=== PATIENT | male | born 1970 | race African-American/Black ===

== ENCOUNTER 2016-12-12 04:19 | Inpatient (IN) | payer BC, OTHER ==
[2016-12-12 04:34] VITALS: BMI 28.5
[2016-12-12 05:01] LABS: BASOPHIL 0.9 % (0-2.0); EOSINOPHIL 3.1 % (0-4.5); MCH 31.8 pg (25.7-33.7); MCHC 33.2 g/dl (32.0-35.9); MEAN CELL VOLUME 95.7 fl (80-96); MEAN PLT VOLUME 7.3 fl (7.5-11.1); PLATELET COUNT 318 K/MM3 (134-434); RDW 12.5 % (11.9-15.9)
[2016-12-12 05:13] LABS: INR 1.06 (0.82-1.09); PROTHROMBIN TIME (PATIENT) 11.7 SEC (9.98-11.88)
[2016-12-12 05:21] LABS: ALBUMIN 3.9 g/dl (3.4-5.0); ANION GAP 10 (8-16); BILIRUBIN,TOTAL 0.5 mg/dL (0.2-1.0); CALCIUM 9.2 mg/dL (8.5-10.1); CO2 25 mmol/L (21-32); GLUCOSE,RANDOM 111 mg/dL (74-106); SGOT/AST 21 U/L (15-37); SGPT/ALT 37 U/L (12-78); TOT PROT 7.4 g/dl (6.4-8.2)
[2016-12-12 05:24] LABS: ALK PHOS 91 U/L (45-117); TROPONIN I < 0.02 ng/ml (0.00-0.05)
--- NOTE | 2016-12-12 06:06 | PDOC ---
History of Present Illness - General Chief Complaint: Chest Pain Stated Complaint: CHEST PAIN/TIGHTNESS, SOB Time Seen by Provider: 12/12/16 04:41 History Source: Patient Exam Limitations: No Limitations - History of Present Illness Initial Comments: 12/12/16 06:00 46yo Male patient w/ PmHx: HTN presents to ED c/o chest pains, chest tightness with trouble breathing. Patient states drinking alcohol moderately daily. Associated lightheadedness, dizziness reported. He denies any other complaints at this time. Presenting Symptoms: Chest Pain Timing/Duration: reports: getting worse Severity/Quality: reports: moderate, sharp Location: reports: substernal Chest Pain Radiation: reports: no radiation Activities at Onset: reports: no specific activity Past History - Travel Traveled outside of the country in the last 30 days: No Close contact w/someone who was outside of country & ill: No - Past Medical History Allergies/Adverse Reactions: Allergies Allergy/AdvReac Type Severity Reaction Status Date / Time No Known Allergies Allergy Verified 12/12/16 04:33 Home Medications: Ambulatory Orders Lisinopril [Prinivil] 10 mg PO DAILY 12/12/16 HTN: Yes - Psycho/Social/Smoking Cessation Hx Suicidal Ideation: No Smoking History: Never smoked Cardiac Specific PMH - Complaint Specific PMHX Abdominal Aortic Aneurysm: No Angina: No Cardiac Arrhythmia: No Cardiac Stent: No GERD: No Myocardial Infarction: No Pacemaker: No Pulmonary Embolus: No Valvular Heart Disease: No Peripheral Vascular Disease: No Review of Systems - Review of Systems Able to Perform ROS?: Yes Is the patient limited Guyanese proficient: No Constitutional: No: Chills, Fever Respiratory: No: Cough, Orthopnea, Shortness of Breath, Wheezing Cardiac (ROS): Yes: Chest Pain. No: Palpitations, Syncope ABD/GI: No: Constipated, Diarrhea, Nausea, Vomiting : No: Burning, Dysuria, Flank Pain, Hematuria Musculoskeletal: No: Back Pain Integumentary: No: Pruritus, Rash, Sweating All Other Systems: Reviewed and Negative *Physical Exam - Vital Signs Last Vital Signs Temp Pulse Resp BP Pulse Ox 97.7 F 80 19 131/86 99 12/12/16 06:30 12/12/16 06:30 12/12/16 06:30 12/12/16 06:30 12/12/16 06:30 - Physical Exam General Appearance: Yes: Nourished, Appropriately Dressed. No: Apparent Distress, Mild Distress, Moderate Distress, Severe Distress Neck: positive: Trachea midline, Supple. negative: Decreased range of motion, Stridor, Lymphadenopathy (R), Lymphadenopathy (L) Respiratory/Chest: positive: Lungs Clear, Normal Breath Sounds. negative: Chest Tender, Respiratory Distress, Accessory Muscle Use, Labored Respiration, Rapid RR Cardiovascular: positive: Tachycardia, Irregular Gastrointestinal/Abdominal: positive: Normal Bowel Sounds, Soft. negative: Distended, Guarding, Rebound, Tenderness Musculoskeletal: positive: Normal Inspection. 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, Fully Oriented, Alert, Normal Mood/ Affect, Normal Response, Motor Strength 5/5 Heart Score/ECG Review - History History: Slightly suspicious - Electrocardiogram EKG: Normal - Age Age: 45-65 - Risk Factors Risk Factors Heart Score: Yes Hx Hypertension Based on the list above the patient has:: 1-2 risk factors - Troponin Troponin: </= normal limit - Score Heart Score - Total: 2 - ECG Impressions Normal ECG: No Non-specific ST Elevation: No Ischemic Changes: No Bradycardia: No Tachycardia: Afib w/rapid Vent rate Torsades sofia Pointes: No WPW: No ED Treatment Course - LABORATORY CBC & Chemistry Diagram: 12/12/16 04:55 12/12/16 04:55 - ADDITIONAL ORDERS Additional order review: Laboratory Results 12/12/16 12/12/16 12/12/16 04:55 04:55 04:55 INR 1.06 Sodium 135 L Potassium 4.1 Chloride 100 Carbon Dioxide 25 Anion Gap 10 BUN 13 Creatinine 1.0 Creat Clearance w eGFR > 60 Random Glucose 111 H Calcium 9.2 Magnesium 2.0 Total Bilirubin 0.5 AST 21 ALT 37 Alkaline Phosphatase 91 Creatine Kinase 172 Creatine Kinase Index CK-MB (CK-2) < 1.000 CK-MB (CK-2) Rel Index Cancelled Troponin I < 0.02 Total Protein 7.4 Albumin 3.9 12/12/16 04:55 RBC 4.50 MCV 95.7 MCHC 33.2 RDW 12.5 MPV 7.3 L Neutrophils % 53.0 Lymphocytes % 31.4 Monocytes % 11.6 H Eosinophils % 3.1 Basophils % 0.9 *DC/Admit/Observation/Transfer Diagnosis at time of Disposition: New onset atrial fibrillation - Discharge Dispostion Condition at time of disposition: Fair Admit: Yes
[2016-12-12] MEDS ORDERED: DILTIAZEM INJECTION 125 MG in DEXTROSE 5%-WATER - 100 ML IVPB SCH (06:45)
--- NOTE | 2016-12-12 09:39 | CON.CARD ---
Consult Consult Specialty:: Cardiology Reason for Consultation:: new onset AF - History of Present Illness History of Present Illness: 46yo Male patient w/ PmHx: HTN presents to ED c/o chest pains, chest tightness with trouble breathing. Patient states drinking alcohol moderately daily. Associated lightheadedness, dizziness reported. He denies any other complaints at this time. - History Source History Provided By: Patient, Medical Record - Past Medical History Cardio/Vascular: Yes: HTN - Smoking History Smoking history: Never smoked Home Medications - Allergies Allergies/Adverse Reactions: Allergies Allergy/AdvReac Type Severity Reaction Status Date / Time No Known Allergies Allergy Verified 12/12/16 04:33 - Home Medications Home Medications: Ambulatory Orders Lisinopril [Prinivil] 10 mg PO DAILY 12/12/16 Review of Systems - Review of Systems Constitutional: reports: No Symptoms Eyes: reports: No Symptoms HENT: reports: No Symptoms Neck: reports: No Symptoms Cardiovascular: reports: No Symptoms, Chest Pain, Shortness of Breath Respiratory: reports: SOB Gastrointestinal: reports: No Symptoms Genitourinary: reports: No Symptoms Breasts: reports: No Symptoms Reported Musculoskeletal: reports: No Symptoms Integumentary: reports: No Symptoms Neurological: reports: No Symptoms Endocrine: reports: No Symptoms Hematology/Lymphatic: reports: No Symptoms Psychiatric: reports: No Symptoms Vital Signs: Vital Signs Temperature 97.7 F 12/12/16 06:30 Pulse Rate 96 H 12/12/16 07:42 Respiratory Rate 20 12/12/16 07:42 Blood Pressure 131/86 12/12/16 07:42 O2 Sat by Pulse Oximetry (%) 100 12/12/16 07:42 Constitutional: Yes: Well Nourished, No Distress, Calm Eyes: Yes: WNL, Conjunctiva Clear, EOM Intact HENT: Yes: WNL, Atraumatic, Normocephalic Neck: Yes: WNL, Supple, Trachea Midline Respiratory: Yes: WNL, Regular, CTA Bilaterally Gastrointestinal: Yes: WNL, Normal Bowel Sounds Renal/: Yes: WNL Cardiovascular: Yes: Tachycardia, Pulse Irregular Heart Sounds: Yes: S1, S2 Musculoskeletal: Yes: WNL Extremities: Yes: WNL Integumentary: Yes: WNL Neurological: Yes: WNL, Alert, Oriented ...Motor Strength: WNL Psychiatric: Yes: WNL, Alert, Oriented - Other Data Labs, Other Data: INR, PTT INR 1.06 (0.82-1.09) 12/12/16 04:55 Laboratory Tests 12/12/16 12/12/16 12/12/16 04:55 04:55 04:55 WBC 12.0 H RBC 4.50 Hgb 14.3 Hct 43.1 MCV 95.7 MCHC 33.2 RDW 12.5 Plt Count 318 MPV 7.3 L Neutrophils % 53.0 Lymphocytes % 31.4 Monocytes % 11.6 H Eosinophils % 3.1 Basophils % 0.9 INR 1.06 Sodium 135 L Potassium 4.1 Chloride 100 Carbon Dioxide 25 Anion Gap 10 BUN 13 Creatinine 1.0 Creat Clearance w eGFR > 60 Random Glucose 111 H Calcium 9.2 Magnesium 2.0 Total Bilirubin 0.5 AST 21 ALT 37 Alkaline Phosphatase 91 Creatine Kinase 172 Creatine Kinase Index CK-MB (CK-2) < 1.000 CK-MB (CK-2) Rel Index Troponin I < 0.02 Total Protein 7.4 Albumin 3.9 12/12/16 04:55 WBC RBC Hgb Hct MCV MCHC RDW Plt Count MPV Neutrophils % Lymphocytes % Monocytes % Eosinophils % Basophils % INR Sodium Potassium Chloride Carbon Dioxide Anion Gap BUN Creatinine Creat Clearance w eGFR Random Glucose Calcium Magnesium Total Bilirubin AST ALT Alkaline Phosphatase Creatine Kinase Creatine Kinase Index CK-MB (CK-2) CK-MB (CK-2) Rel Index Cancelled Troponin I Total Protein Albumin Imaging - Results Chest X-ray: Image Reviewed (no i/e) EKG: Image Reviewed (af lvh) Assessment/Plan new onset AF atypical cp htn hhd etoh abuse Plan echo ac with NOAC start lopressor 100 bid taper off cardizem IV chesk lipids urine tox
--- NOTE | 2016-12-12 10:04 | HP ---
CHIEF COMPLAINT:Chest pain and shortness of breath PCP:Page HISTORY OF PRESENT ILLNESS: 46M history of HTN presents to the ED with chest pain and shortness of breath. Patient states he had left arm pain which started about 1 week ago. Patient just came back from [facility] last night after being there or 3 days. He endorses partying and drinking alcohol while there. He states while in [place] he started having sharp apin acorss his chest. 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 He came to the ED and was noted to be in new onset A fib with RVR. He endorses a history of palpitations "once in a while." He also had one episode of vomiting with his chest pain. Currently asymptomatic ER course was notable for: (1)CXR EKG (2)Labs (3)Lovenox Recent Travel:[facility] returned yesterday after being there for 3 days PAST MEDICAL HISTORY:HTN PAST SURGICAL HISTORY:Denies Social History: Smoking:Denies Alcohol:6 beers at least a day Drugs: Denies Family History: "Heart problems" on mother's side. Father has HTN an DM Allergies No Known Allergies Allergy (Verified 12/12/16 04:33) HOME MEDICATIONS: Home Medications Medication Instructions Recorded Lisinopril [Prinivil] 10 mg PO DAILY 12/12/16 REVIEW OF SYSTEMS CONSTITUTIONAL: Absent: fever, chills, diaphoresis, generalized weakness, malaise, loss of appetite, weight change HEENT: Absent: rhinorrhea, nasal congestion, throat pain, throat swelling, difficulty swallowing, mouth swelling, ear pain, eye pain, visual changes CARDIOVASCULAR: Absent: syncope, lightheadedness, peripheral edema Present: palpitations, irregular heart rate,chest pain RESPIRATORY: Absent: cough, dyspnea with exertion, orthopnea, wheezing, stridor, hemoptysis Present: Shortness of breath GASTROINTESTINAL: Absent: abdominal pain, abdominal distension, diarrhea, constipation, melena, hematochezia Present: nausea, vomiting GENITOURINARY: Absent: dysuria, frequency, urgency, hesitancy, hematuria, flank pain, genital pain MUSCULOSKELETAL: Absent: myalgia, arthralgia, joint swelling, back pain, neck pain SKIN: Absent: rash, itching, pallor HEMATOLOGIC/IMMUNOLOGIC: Absent: easy bleeding, easy bruising, lymphadenopathy, frequent infections ENDOCRINE: Absent: unexplained weight gain, unexplained weight loss, heat intolerance, cold intolerance NEUROLOGIC: Absent: headache, focal weakness or paresthesias, dizziness, unsteady gait, seizure, mental status changes, bladder or bowel incontinence PSYCHIATRIC: Absent: anxiety, depression, suicidal or homicidal ideation, hallucinations. PHYSICAL EXAMINATION Vital Signs - 24 hr 12/12/16 07:42 Pulse Rate [ 96 H Left] Respiratory 20 Rate Blood Pressure 131/86 [Left Arm] O2 Sat by Pulse 100 Oximetry (%) GENERAL: Awake, alert, and fully oriented, in no acute distress. HEAD: Normal with no signs of trauma. EYES: Pupils equal, round and reactive to light, extraocular movements intact, sclera anicteric, conjunctiva clear EARS, NOSE, THROAT: Moist mucous membranes. NECK: supple without JVD LUNGS: Breath sounds equal, clear to auscultation bilaterally. No wheezes, and no crackles. No accessory muscle use. HEART: Irregularrly irregular Tachycardic without murmur ABDOMEN: Soft, nontender, not distended, normoactive bowel sounds, no guarding, no rebound UPPER EXTREMITIES: warm, well-perfused. No peripheral edema. LOWER EXTREMITIES: warm, well-perfused. No calf tenderness. No peripheral edema. NEUROLOGICAL: Cranial nerves II-XII grossly intact. Normal speech. Muscle strength 5/5 2+ Biceps and knee jerk PSYCHIATRIC: Cooperative. Good eye contact. Appropriate mood and affect. Laboratory Results - last 24 hr 12/12/16 12/12/16 12/12/16 04:55 04:55 04:55 WBC 12.0 H RBC 4.50 Hgb 14.3 Hct 43.1 MCV 95.7 MCHC 33.2 RDW 12.5 Plt Count 318 MPV 7.3 L Neutrophils % 53.0 Lymphocytes % 31.4 Monocytes % 11.6 H Eosinophils % 3.1 Basophils % 0.9 INR 1.06 Sodium 135 L Potassium 4.1 Chloride 100 Carbon Dioxide 25 Anion Gap 10 BUN 13 Creatinine 1.0 Creat Clearance w eGFR > 60 Random Glucose 111 H Calcium 9.2 Magnesium 2.0 Total Bilirubin 0.5 AST 21 ALT 37 Alkaline Phosphatase 91 Creatine Kinase 172 Creatine Kinase Index CK-MB (CK-2) < 1.000 CK-MB (CK-2) Rel Index Troponin I < 0.02 Total Protein 7.4 Albumin 3.9 12/12/16 04:55 WBC RBC Hgb Hct MCV MCHC RDW Plt Count MPV Neutrophils % Lymphocytes % Monocytes % Eosinophils % Basophils % INR Sodium Potassium Chloride Carbon Dioxide Anion Gap BUN Creatinine Creat Clearance w eGFR Random Glucose Calcium Magnesium Total Bilirubin AST ALT Alkaline Phosphatase Creatine Kinase Creatine Kinase Index CK-MB (CK-2) CK-MB (CK-2) Rel Index Cancelled Troponin I Total Protein Albumin EKG: A fib with RVR CXR: clear ASSESSMENT/PLAN: 46M with HTN presents with Chest pain and SOB found to be in new onset a fib after heavy drinking on vacation. New onset Afib with RVR: likely from heavy drinking admit to telemtery for monitoring cardiology consult titrate off cardizem gtt and start metoprolol 100mg po bid CHADVaSc score 1 will start eliquis--->HAS-BLED score 1 Echo Even if goes into sinus and ECHO is WNL will need AC for at least 3 months Chest pain r/o ID lipid panel trend troponins Cardiology consult ECHO Statin HTN: restart lisinopril at home dose 10mg po daily Alcohol abuse: counselled on stopping Drinks 6 beers a day everyday and sometimes liquor on top of that CIWA protocol if needed not interested in stopping FEN: no IVF No electrolyte issues low sodium diet PPx: eliquis no GI PPx needed at this time no deconditioning issues will put PT consult if needed. Case d/w attending Dr. Brown Visit type - Emergency Visit Emergency Visit: Yes ED Registration Date: 12/12/16 Care time: The patient presented to the Emergency Department on the above date and was hospitalized for further evaluation of their emergent condition. - New Patient This patient is new to me today: Yes Date on this admission: 12/12/16 - Critical Care Critical Care patient: No
[2016-12-12] MEDS ORDERED: ATORVASTATIN CA 40 MG TABLET (FP) PO ONE (10:30)
[2016-12-12] MEDS ORDERED: LISINOPRIL 10 MG TABLET (FP) PO SCH (10:30)
[2016-12-12] MEDS: APIXABAN 5 MG TABLET PO SCH ×2 (10:32→21:22)
[2016-12-12] MEDS: METOPROLOL TARTRATE 50 MG TABLET (FP) PO SCH ×2 (10:32→21:22)
[2016-12-12 11:25] LABS: CHOLESTEROL 195 mg/dL (50-200); LDL CHOLESTEROL (ONLY SJRH) 122 mg/dL (5-100)
[2016-12-12 13:20] LABS: URINE APPEARANCE CLEAR; URINE BILIRUBIN NEGATIVE (NEGATIVE); URINE BLOOD NEGATIVE (NEGATIVE); URINE COLOR LTYELLOW; URINE GLUCOSE (UA) NEGATIVE (NEGATIVE); URINE KETONE NEGATIVE (NEGATIVE); URINE LEUK ESTERASE NEGATIVE (NEGATIVE); URINE NITRITE NEGATIVE (NEGATIVE); URINE PROTEIN NEGATIVE (NEGATIVE); URINE UROBILINOGEN NEGATIVE E.U./dl (0.2-1.0)
[2016-12-12 19:29] LABS: URINE MARIJUANA THC NEGATIVE ng/ml (CUTOFF=50)
[2016-12-13 07:21] LABS: MCH 32.5 pg (25.7-33.7); MCHC 33.9 g/dl (32.0-35.9); MEAN PLT VOLUME 7.6 fl (7.5-11.1); PLATELET COUNT 303 K/MM3 (134-434); RDW 12.6 % (11.9-15.9); WHITE BLOOD COUNT 9.7 K/mm3 (4.0-10.0)
[2016-12-13 08:02] LABS: ANION GAP 9 (8-16); CALCIUM 8.9 mg/dL (8.5-10.1); CO2 27 mmol/L (21-32); GLUCOSE,RANDOM 104 mg/dL (74-106); MAGNESIUM 2.1 mg/dL (1.8-2.4); PHOSPHOROUS 3.9 mg/dL (2.5-4.9)
[2016-12-13] MEDS: APIXABAN 5 MG TABLET PO SCH ×2 (09:33→22:17)
[2016-12-13] MEDS: METOPROLOL TARTRATE 50 MG TABLET (FP) PO SCH ×2 (09:33→22:17)
--- NOTE | 2016-12-13 11:33 | EKG ---
Test Reason : Blood Pressure : / mmHG Vent. Rate : 117 BPM Atrial Rate : 182 BPM P-R Int : 000 ms QRS Dur : 094 ms QT Int : 288 ms P-R-T Axes : 000 -16 020 degrees QTc Int : 401 ms ATRIAL FIBRILLATION WITH RAPID VENTRICULAR RESPONSE MINIMAL VOLTAGE CRITERIA FOR LVH, MAY BE NORMAL VARIANT ABNORMAL ECG WHEN COMPARED WITH ECG OF 28-DEC-2000 09:58, ATRIAL FIBRILLATION HAS REPLACED SINUS RHYTHM Confirmed by JULIETTE BERMUDEZ, REYNALDO ([id number]) on 12/13/2016 11:33:15 AM Referred By: Confirmed By:REYNALDO SEGOVIA MD
--- NOTE | 2016-12-13 11:39 | PN ---
Progress Note, Physician Chief Complaint: Pt A&Ox3; asymptomatic. History of Present Illness: 46yo Male patient w/ PmHx: HTN presents to ED c/o chest pains, chest tightness with trouble breathing. Patient states drinking alcohol moderately daily. Associated lightheadedness, dizziness reported. He denies any other complaints at this time. Presenting Symptoms: Chest Pain Timing/Duration: reports: getting worse Severity/Quality: reports: moderate, sharp Location: reports: substernal Chest Pain Radiation: reports: no radiation Activities at Onset: reports: no specific activity - Current Medication List Current Medications: Active Medications Apixaban (Eliquis -) 5 mg PO BID [facility] Last Admin: 12/13/16 09:33 Dose: 5 mg Atorvastatin Calcium (Lipitor -) 40 mg PO [facility] Metoprolol Tartrate (Lopressor -) 100 mg PO BID [facility] Last Admin: 12/13/16 09:33 Dose: 100 mg - Objective Vital Signs: Vital Signs Temperature 97.7 F 12/13/16 09:00 Pulse Rate 78 12/13/16 09:00 Respiratory Rate 20 12/13/16 09:00 Blood Pressure 114/69 12/13/16 09:00 O2 Sat by Pulse Oximetry (%) 98 12/13/16 09:00 Constitutional: Yes: Calm Eyes: Yes: WNL HENT: Yes: WNL Neck: Yes: WNL Cardiovascular: Yes: Regular Rate and Rhythm Respiratory: Yes: Regular Gastrointestinal: Yes: Soft ...Rectal Exam: Yes: Deferred Genitourinary: No: Anuria Breast(s): Yes: WNL Musculoskeletal: Yes: WNL Extremities: Yes: WNL Edema: No Peripheral Pulses WNL: Yes Integumentary: Yes: WNL Neurological: Yes: WNL ...Motor Strength: WNL Psychiatric: Yes: Other (alcoholism) Labs: CBC, BMP 12/13/16 05:35 12/13/16 05:35 INR, PTT INR 1.06 (0.82-1.09) 12/12/16 04:55 Current Medications Apixaban (Eliquis -) 5 mg PO BID [facility] Last Admin: 12/13/16 09:33 Dose: 5 mg Atorvastatin Calcium (Lipitor -) 40 mg PO [facility] Abnormal Lab Results 12/13/16 05:35 BUN 19 H D - ....Imaging Ultrasound: Report Reviewed (ECHO: normal LVEF; mild MO; normal LA size) Problem List - Problems (1) New onset atrial fibrillation Assessment/Plan: Pt has now changed from AF to normal sinus rhythm. ECHO: normal LVEF; normal LA size. As noted by attending team, pt is an active alcoholic (at least 6 beers a night) . [id number] score is 1. Apixaban may need to be discontinued, especially if he continues to drink; consider ASA, but even this has risk for bleed (higher, given alcoholism). Continue metoprolol; can change to ER for better compliance (hold metoprolol until after stress MIBI). Follow TFTs. Code(s): I48.91 - UNSPECIFIED ATRIAL FIBRILLATION (2) Hyperlipidemia Assessment/Plan: agree with statin Code(s): E78.5 - HYPERLIPIDEMIA, UNSPECIFIED (3) HTN (hypertension) Assessment/Plan: presently well-controlled. Code(s): I10 - ESSENTIAL (PRIMARY) HYPERTENSION (4) Family history of heart disease Assessment/Plan: mother with heart disease. Code(s): Z82.49 - FAMILY HX OF ISCHEM HEART DIS AND OTH DIS OF THE CIRC SYS (5) Alcoholism Assessment/Plan: long-term detox protocol. 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 Multiple CAD risks. For stress MIBI. Code(s): R07.9 - CHEST PAIN, UNSPECIFIED
[2016-12-13 12:17] LABS: THYROID STIMULATING HORMONE 0.85 uIU/ml (0.358-3.74)
--- NOTE | 2016-12-13 15:49 | EKG ---
Test Reason : Blood Pressure : / mmHG Vent. Rate : 072 BPM Atrial Rate : 072 BPM P-R Int : 170 ms QRS Dur : 092 ms QT Int : 388 ms P-R-T Axes : 050 -08 -11 degrees QTc Int : 424 ms NORMAL SINUS RHYTHM NORMAL ECG WHEN COMPARED WITH ECG OF 12-DEC-2016 04:31, SINUS RHYTHM HAS REPLACED ATRIAL FIBRILLATION VENT. RATE HAS DECREASED BY 45 BPM INVERTED T WAVES HAVE REPLACED NONSPECIFIC T WAVE ABNORMALITY IN INFERIOR LEADS Confirmed by REYNALDO SEGOVIA MD ([id number]) on 12/13/2016 3:49:38 PM Referred By: EMILIA LINO Confirmed By:REYNALDO SEGOVIA MD
--- NOTE | 2016-12-13 17:47 | PN ---
Physical Exam: SUBJECTIVE: Patient seen and examined this AM. Patient feels a lot better. No more CP, not SOB, no fevers, no chills. Feels back to baseline. Patient educated on condition and counseled on alcohol cessation. OBJECTIVE: Vital Signs Period Temp Pulse Resp BP Sys/Arellano Pulse Ox Last 24 Hr 97.5 F-98.7 F 76-84 20-20 101-117/59-78 98-100 GENERAL: The patient is awake, alert, and fully oriented, in no acute distress. EYES: PERRL, extraocular movements intact LUNGS: Breath sounds equal, clear to auscultation bilaterally, no wheezes, no crackles, no accessory muscle use. HEART: Regular rate and rhythm, S1, S2 without murmur, rub or gallop. ABDOMEN: Soft, nontender, nondistendned, normoactive bowel sounds EXTREMITIES: 2+ pulses, warm, well-perfused, no edema. NEUROLOGICAL: Mental statua AAO x3, no facial droop. Cranial nerves II through XII grossly intact. Laboratory Results - last 24 hr 12/12/16 12/12/16 12/13/16 18:00 20:50 05:35 WBC 9.7 RBC 4.52 Hgb 14.7 Hct 43.4 MCV 96.0 MCHC 33.9 RDW 12.6 Plt Count 303 MPV 7.6 Sodium Potassium Chloride Carbon Dioxide Anion Gap BUN Creatinine Random Glucose Calcium Phosphorus Magnesium Troponin I < 0.02 TSH Opiates Screen Negative Methadone Screen Negative Barbiturate Screen Negative Phencyclidine Screen Negative Ur Amphetamines Screen Negative MDMA (Ecstasy) Screen Negative Benzodiazepines Screen Negative Cocaine Screen Negative U Marijuana (THC) Screen Negative 12/13/16 12/13/16 05:35 05:35 WBC RBC Hgb Hct MCV MCHC RDW Plt Count MPV Sodium 138 Potassium 4.5 Chloride 102 Carbon Dioxide 27 Anion Gap 9 BUN 19 H D Creatinine 1.0 Random Glucose 104 Calcium 8.9 Phosphorus 3.9 Magnesium 2.1 Troponin I TSH 0.85 Cancelled Opiates Screen Methadone Screen Barbiturate Screen Phencyclidine Screen Ur Amphetamines Screen MDMA (Ecstasy) Screen Benzodiazepines Screen Cocaine Screen U Marijuana (THC) Screen Active Medications Generic Name Dose Route Start Last Admin Trade Name Freq PRN Reason Stop Dose Admin Apixaban 5 mg 12/12/16 10:15 12/13/16 09:33 Eliquis - PO 5 mg BID ELMO Administration Atorvastatin Calcium 40 mg 12/13/16 22:00 Lipitor - PO HS [facility] ASSESSMENT/PLAN: 46M with PMHx HTN presented with chest pain, palpitations, SOB, found to be a new onset Afib with RVR, likely from heavy EToH abuse. # New onset Afib with RVR - Cause is likely due to heavy drinking. Patient drinks 6 beers a day everyday mixed with strong liquor - Patient admitted to telemetry for monitoring, tele reviewed today, patient had intermittent episode of Afib, no tachycardia - Patient is rate controlled with metoprolol 100mg PO BID - CHADSVaSC score is 1 (for HTN), patient initially started on Eliquis 5mg PO BID. Patient counseled on dangerous of drinking while on Eliquis, patient may fall and have a bleed. Patient promissed attending that he would not drink for 3 months. Cardio recommends thinking about d/c'ing it - If we continue AC, needs to be for at least 3 months - Echo is negative for clots # Chest pain r/o NC - Patient presented with chest pain - Lipid panel, troponins, A1C are WNL - Patient on statin 40mg PO QHD - Cardio recommends stress test, d/c'd metoprolol temporarily, will check results tomorrow # History of HTN: - Restart lisinopril at home dose 10mg po daily # History of Alcohol Abuse - Patient was counseled to stop drinking, ifnormed that if patient is on Eliquis there is a high risk of bleed counselled on stopping - Patient not actively withdrawing # FEN: - Fluids: no IVF - Electrolytes: No electrolyte issues - Nutrition: low sodium diet # PPx: - Patient is on Eliquis 5mg PO BID - No GI PPx needed at this time - No deconditioning issues will put PT consult if needed. # Code Status: - Full Code Visit type - Emergency Visit Emergency Visit: No - New Patient This patient is new to me today: No - Critical Care Critical Care patient: No
--- NOTE | 2016-12-13 20:35 | PN ---
Teaching Attending Note Name of Resident: Ethel Sun ATTENDING PHYSICIAN STATEMENT I saw and evaluated the patient. I reviewed the resident's note and discussed the case with the resident. I agree with the resident's findings and plan as documented. SUBJECTIVE: Denies any chest pain at this time. No fever or chills, no withdrawel at this time. OBJECTIVE: Vital Signs Temperature 97.0 F L 12/13/16 17:00 Pulse Rate 85 12/13/16 17:00 Respiratory Rate 20 12/13/16 17:00 Blood Pressure 110/67 12/13/16 17:00 O2 Sat by Pulse Oximetry (%) 98 12/13/16 09:00 CBCD WBC 9.7 K/mm3 (4.0-10.0) 12/13/16 05:35 RBC 4.52 M/mm3 (4.00-5.60) 12/13/16 05:35 Hgb 14.7 GM/dL (11.7-16.9) 12/13/16 05:35 Hct 43.4 % (35.4-49) 12/13/16 05:35 MCV 96.0 fl (80-96) 12/13/16 05:35 MCHC 33.9 g/dl (32.0-35.9) 12/13/16 05:35 RDW 12.6 % (11.9-15.9) 12/13/16 05:35 Plt Count 303 K/MM3 (134-434) 12/13/16 05:35 MPV 7.6 fl (7.5-11.1) 12/13/16 05:35 CMP Sodium 138 mmol/L (136-145) 12/13/16 05:35 Potassium 4.5 mmol/L (3.5-5.1) 12/13/16 05:35 Chloride 102 mmol/L (98-107) 12/13/16 05:35 Carbon Dioxide 27 mmol/L (21-32) 12/13/16 05:35 Anion Gap 9 (8-16) 12/13/16 05:35 BUN 19 mg/dL (7-18) H D 12/13/16 05:35 Creatinine 1.0 mg/dL (0.7-1.3) 12/13/16 05:35 Creat Clearance w eGFR > 60 (>60) 12/12/16 04:55 Random Glucose 104 mg/dL (74-106) 12/13/16 05:35 Calcium 8.9 mg/dL (8.5-10.1) 12/13/16 05:35 Total Bilirubin 0.5 mg/dL (0.2-1.0) 12/12/16 04:55 AST 21 U/L (15-37) 12/12/16 04:55 ALT 37 U/L (12-78) 12/12/16 04:55 Alkaline Phosphatase 91 U/L (45-117) 12/12/16 04:55 Total Protein 7.4 g/dl (6.4-8.2) 12/12/16 04:55 Albumin 3.9 g/dl (3.4-5.0) 12/12/16 04:55 CARDIAC ENZYMES Creatine Kinase 172 IU/L (39-308) 12/12/16 04:55 Troponin I < 0.02 ng/ml (0.00-0.05) 12/12/16 20:50 Current Medications Generic Name Dose Route Start Last Admin Trade Name Freq PRN Reason Stop Dose Admin Apixaban 5 mg 12/12/16 10:15 12/13/16 09:33 Eliquis - PO 5 mg BID ELMO Administration Atorvastatin Calcium 40 mg 12/13/16 22:00 Lipitor - PO HS [facility] Metoprolol Tartrate 100 mg 12/13/16 22:00 Lopressor - PO BID [facility] Home Medications Medication Instructions Recorded Lisinopril [Prinivil] 10 mg PO DAILY 12/12/16 PE: per resident's note Ultrasound: Report Reviewed (ECHO: normal LVEF; mild [place]; normal LA size) ASSESSMENT AND PLAN: Patient is a 46M history of HTN presents to the ED with chest pain and shortness of breath. And was found to have a new onset afib with RVR. # New onset atrial fibrillation , NSR now s/p Cardizem, on lopressor now. with [id number] score is 1. Patient was started on Apixaban may need to be discontinued, especially if he continues to drink; will consider ASA instead but also has risk for bleed with alcoholism. Patient drinks at least 6 beers a night. Continue metoprolol; but will hold it for now for stress MIBI test. # Hyperlipidemia on statin continue # HTN (hypertension) controlled # Family history of heart disease # Alcoholism was suggested to stop drinking if her is going to be on ELiquis. patient stated that he can stop drinking for 3 months only # Acute Chest pain r/o ACS , going for stress test (MIBI) DVT Px: Eliquis
[2016-12-13] MEDS: ATORVASTATIN CA 40 MG TABLET (FP) PO SCH (22:17)
[2016-12-14 07:29] LABS: MCH 32.5 pg (25.7-33.7); MCHC 33.9 g/dl (32.0-35.9); MEAN PLT VOLUME 7.5 fl (7.5-11.1); PLATELET COUNT 282 K/MM3 (134-434); RDW 12.2 % (11.9-15.9); WHITE BLOOD COUNT 9.2 K/mm3 (4.0-10.0)
[2016-12-14 07:56] LABS: ANION GAP 10 (8-16); CALCIUM 8.8 mg/dL (8.5-10.1); CO2 27 mmol/L (21-32); CREATININE 0.9 mg/dL (0.7-1.3); GLUCOSE,RANDOM 109 mg/dL (74-106)
[2016-12-14] MEDS: APIXABAN 5 MG TABLET PO SCH ×2 (08:23→10:54)
--- NOTE | 2016-12-14 08:37 | PN ---
Physical Exam: SUBJECTIVE: Patient seen and examined at bedside. No complaints. OBJECTIVE: Vital Signs Period Temp Pulse Resp BP Sys/Arellano Pulse Ox Last 24 Hr 97.0 F-99 F 70-85 18-20 110-126/67-82 98-98 GENERAL: The patient is awake, alert, and fully oriented, in no acute distress. Patient is very comfortable, was listening to music when I walked in. EYES: PERRL, extraocular movements intact, sclera anicteric, conjunctiva clear. LUNGS: Breath sounds equal, clear to auscultation bilaterally, no wheezes, no crackles, no accessory muscle use. HEART: Regular rate and rhythm, S1, S2 without murmur, rub or gallop. ABDOMEN: Soft, nontender, nondistended, normoactive bowel sounds, no guarding, no rebound EXTREMITIES: 2+ pulses, warm, well-perfused, no edema. On SCds NEUROLOGICAL: AAOx3, no facial droop, Cranial nerves II through XII grossly intact. Normal speech, gait not observed. Laboratory Results - last 24 hr 12/13/16 12/13/16 12/14/16 05:35 05:35 06:07 WBC 9.2 RBC 4.28 Hgb 13.9 Hct 41.1 MCV 96.0 MCHC 33.9 RDW 12.2 Plt Count 282 MPV 7.5 Sodium 138 Potassium 4.5 Chloride 102 Carbon Dioxide 27 Anion Gap 9 BUN 19 H D Creatinine 1.0 Random Glucose 104 Calcium 8.9 Phosphorus 3.9 Magnesium 2.1 TSH 0.85 Cancelled Active Medications Generic Name Dose Route Start Last Admin Trade Name Jonnyq PRN Reason Stop Dose Admin Apixaban 5 mg 12/12/16 10:15 12/14/16 08:23 Eliquis - PO 5 mg BID ELMO Administration Atorvastatin Calcium 40 mg 12/13/16 22:00 12/13/16 22:17 Lipitor - PO 40 mg HS ELMO Administration Metoprolol Tartrate 100 mg 12/13/16 22:00 12/13/16 22:17 Lopressor - PO Not Given BID ELMO ASSESSMENT/PLAN: 46M with PMHx HTN presented with chest pain, palpitations, SOB, found to be a new onset Afib with RVR, likely from heavy EToH abuse. # New onset Afib with RVR - Cause is likely due to heavy drinking. Patient drinks 6 beers a day everyday mixed with strong liquor - Patient admitted to telemetry for monitoring, tele reviewed today, patient had intermittent episode of Afib, no tachycardia - Patient is rate controlled with metoprolol 100mg PO BID - CHADSVaSC score is 1 (for HTN), patient initially started on Eliquis 5mg PO BID, but risks and benefits were weighed, decided to dc. - Echo is negative for clots # Chest pain r/o IL - Patient presented with chest pain - Lipid panel, troponins, A1C are WNL - Patient on statin 40mg PO QHD - Stress test today, results show +perfusion defects in multiple territories - Started ASA and Plavix, dc'ed Eliquis - Will transfer to higher level facility for cardiac cath # History of HTN: - Restart lisinopril at home dose 10mg po daily # History of Alcohol Abuse - Patient was counseled to stop drinking, ifnormed that if patient is on Eliquis there is a high risk of bleed counselled on stopping - Patient later on in the day looked mildly anxious with sinus tach, concerned for withdrawal, given Libruim 25mg once and Q6hrs - For coronary angiogram. If in DTs, will need to treat before undergong the angiogram. # FEN: - Fluids: no IVF - Electrolytes: No electrolyte issues - Nutrition: low sodium diet # PPx: - DVT Px: SCDs ordered - No GI PPx needed at this time - No deconditioning issues will put PT consult if needed. # Code Status: - Full Code Visit type - Emergency Visit Emergency Visit: No - New Patient This patient is new to me today: No - Critical Care Critical Care patient: No - Discharge Referral Referred to [facility] Med P.C.: No
[2016-12-14] MEDS: METOPROLOL TARTRATE 50 MG TABLET (FP) PO SCH ×3 (10:54→21:05)
[2016-12-14] MEDS ORDERED: ASPIRIN 325 MG TABLET PO ONE (15:12)
--- NOTE | 2016-12-14 15:13 | PN ---
Progress Note, Physician Chief Complaint: Pt A&Ox3; no chest pain; pt is anxious, and says he feels somewhat the way he has in the past when going through alcohol withdrawal ("I usually get a drink and then feel better"). History of Present Illness: 46yo black male patient w/ PmHx: HTN presents to ED c/o chest pains, chest tightness with trouble breathing. Patient states drinking alcohol moderately daily. Associated lightheadedness, dizziness reported. He denies any other complaints at this time. Presenting Symptoms: Chest Pain Timing/Duration: reports: getting worse Severity/Quality: reports: moderate, sharp Location: reports: substernal Chest Pain Radiation: reports: no radiation Activities at Onset: reports: no specific activity - Current Medication List Current Medications: Active Medications Apixaban (Eliquis -) 5 mg PO BID [facility] Last Admin: 12/14/16 10:54 Dose: Not Given Atorvastatin Calcium (Lipitor -) 40 mg PO HS [facility] Last Admin: 12/13/16 22:17 Dose: 40 mg Metoprolol Tartrate (Lopressor -) 100 mg PO BID [facility] Last Admin: 12/14/16 14:05 Dose: 100 mg - Objective Vital Signs: Vital Signs Temperature 98.5 F 12/14/16 13:54 Pulse Rate 75 12/14/16 13:54 Respiratory Rate 20 12/14/16 13:54 Blood Pressure 144/91 12/14/16 13:54 O2 Sat by Pulse Oximetry (%) 97 12/14/16 09:00 Constitutional: Yes: Anxious Eyes: Yes: WNL HENT: Yes: WNL Neck: Yes: WNL Cardiovascular: Yes: Tachycardia Respiratory: Yes: Regular Gastrointestinal: Yes: Soft ...Rectal Exam: Yes: Deferred Genitourinary: No: Anuria Breast(s): Yes: WNL Musculoskeletal: Yes: WNL Extremities: Yes: WNL Edema: No Peripheral Pulses WNL: Yes Neurological: Yes: Alert, Oriented Psychiatric: Yes: Alert, Oriented, Other (acute/chronic alcoholism) Labs: CBC, BMP 12/14/16 06:07 12/14/16 06:07 INR, PTT INR 1.06 (0.82-1.09) 12/12/16 04:55 Abnormal Lab Results 12/14/16 06:07 Random Glucose 109 H Problem List - Problems (1) New onset atrial fibrillation Assessment/Plan: Retarted metoprolol; in sinus tachycardia (? withdrawal from alcohol). Apixaban discontinued pending coronary angiogram next week ( [id number] score should include HTN, CHF, and possibly vascular disease, making need for apixaban stronger). TSH 0.85. Code(s): I48.91 - UNSPECIFIED ATRIAL FIBRILLATION (2) Hyperlipidemia Assessment/Plan: agree with statin Code(s): E78.5 - HYPERLIPIDEMIA, UNSPECIFIED (3) HTN (hypertension) Assessment/Plan: presently well-controlled. Code(s): I10 - ESSENTIAL (PRIMARY) HYPERTENSION (4) Family history of heart disease Assessment/Plan: mother with heart disease. Code(s): Z82.49 - FAMILY HX OF ISCHEM HEART DIS AND OTH DIS OF THE CIRC SYS (5) Alcoholism Assessment/Plan: Now in sinus tachycardia; nervous. He has not had a drink since December 11. Recommend starting detox prtocol. Code(s): F10.20 - ALCOHOL DEPENDENCE, UNCOMPLICATED (6) Chest pain Assessment/Plan: Stress treadmill MIBI: + perfusion defects in multiple territories; gated study notes mildly decreased LVEF. Start ASA, IV heparin, and clopidogrel; discontinue apixaban pending coronary angiogram. For coronary angiogram. If in alcoholic withdrawal/DTs, will need to treat before undergoing the angiogram. Code(s): R07.9 - CHEST PAIN, UNSPECIFIED (7) CHF (congestive heart failure) Code(s): I50.9 - HEART FAILURE, UNSPECIFIED
[2016-12-14] MEDS ORDERED: chlordiazePOXIDE HCL 25 MG CAPSULE PO ONE (15:35)
[2016-12-14] MEDS ORDERED: chlordiazePOXIDE HCL 25 MG CAPSULE PO PRN (15:36)
[2016-12-14] MEDS: CLOPIDOGREL BISULFATE 75 MG TABLET (FP) PO SCH (16:21)
[2016-12-14] MEDS: HEPARIN INFUSION - 500 ML IVPB SCH (18:00)
--- NOTE | 2016-12-14 20:49 | PN ---
Teaching Attending Note Name of Resident: Ethel Sun ATTENDING PHYSICIAN STATEMENT I saw and evaluated the patient. I reviewed the resident's note and discussed the case with the resident. I agree with the resident's findings and plan as documented. SUBJECTIVE: Patient is comfortable with no acute distress OBJECTIVE: Vital Signs Temperature 97.4 F L 12/14/16 18:00 Pulse Rate 91 H 12/14/16 18:00 Respiratory Rate 20 12/14/16 18:00 Blood Pressure 125/88 12/14/16 18:00 O2 Sat by Pulse Oximetry (%) 97 12/14/16 09:00 PE: per resident's note positive for sinus tachycardia CBCD WBC 9.2 K/mm3 (4.0-10.0) 12/14/16 06:07 RBC 4.28 M/mm3 (4.00-5.60) 12/14/16 06:07 Hgb 13.9 GM/dL (11.7-16.9) 12/14/16 06:07 Hct 41.1 % (35.4-49) 12/14/16 06:07 MCV 96.0 fl (80-96) 12/14/16 06:07 MCHC 33.9 g/dl (32.0-35.9) 12/14/16 06:07 RDW 12.2 % (11.9-15.9) 12/14/16 06:07 Plt Count 282 K/MM3 (134-434) 12/14/16 06:07 MPV 7.5 fl (7.5-11.1) 12/14/16 06:07 CMP Sodium 139 mmol/L (136-145) 12/14/16 06:07 Potassium 4.4 mmol/L (3.5-5.1) 12/14/16 06:07 Chloride 102 mmol/L (98-107) 12/14/16 06:07 Carbon Dioxide 27 mmol/L (21-32) 12/14/16 06:07 Anion Gap 10 (8-16) 12/14/16 06:07 BUN 15 mg/dL (7-18) D 12/14/16 06:07 Creatinine 0.9 mg/dL (0.7-1.3) 12/14/16 06:07 Creat Clearance w eGFR > 60 (>60) 12/12/16 04:55 Random Glucose 109 mg/dL (74-106) H 12/14/16 06:07 Calcium 8.8 mg/dL (8.5-10.1) 12/14/16 06:07 Total Bilirubin 0.5 mg/dL (0.2-1.0) 12/12/16 04:55 AST 21 U/L (15-37) 12/12/16 04:55 ALT 37 U/L (12-78) 12/12/16 04:55 Alkaline Phosphatase 91 U/L (45-117) 12/12/16 04:55 Total Protein 7.4 g/dl (6.4-8.2) 12/12/16 04:55 Albumin 3.9 g/dl (3.4-5.0) 12/12/16 04:55 CARDIAC ENZYMES Creatine Kinase 172 IU/L (39-308) 12/12/16 04:55 Troponin I < 0.02 ng/ml (0.00-0.05) 12/12/16 20:50 Current Medications Generic Name Dose Route Start Last Admin Trade Name Freq PRN Reason Stop Dose Admin Aspirin 81 mg 12/15/16 10:00 Ecotrin - PO DAILY [facility] Atorvastatin Calcium 40 mg 12/13/16 22:00 12/13/16 22:17 Lipitor - PO 40 mg HS ELMO Administration Chlordiazepoxide HCl 25 mg 12/14/16 15:36 Librium - PO Q6H PRN WITHDRAWAL(CONT SUBST) Clopidogrel Bisulfate 75 mg 12/14/16 15:15 12/14/16 16:21 Plavix - PO 75 mg DAILY ELMO Administration Heparin Sodium/Dextrose 500 mls @ 20 mls/hr 12/14/16 19:15 Heparin Infusion - IVPB TITR [facility] Protocol 1,000 UNITS/HR Metoprolol Tartrate 100 mg 12/13/16 22:00 12/14/16 14:05 Lopressor - PO 100 mg BID ELMO Administration Home Medications Medication Instructions Recorded Lisinopril [Prinivil] 10 mg PO DAILY 12/12/16 Pe: per resident's note Ultrasound: Report Reviewed (ECHO: normal LVEF; mild FL; normal LA size) ASSESSMENT AND PLAN: Patient is a 46M history of HTN presents to the ED with chest pain and shortness of breath. And was found to have a new onset afib with RVR. # Positive for stress test ,getting arranged for angioplasty at [facility]. Discussed with Budget Consultant . ALso patient had Normal sinus tachycardia since Lopressor was on hold. Once given to him he was back to his norm. Also a dose of Librium was ordered. # s/p New onset atrial fibrillation , NSR now s/p Cardizem, on lopressor now. with [id number] score is 1. Patient was started on Apixaban Continue metoprolol; , s/p stress MIBI test which was positive. # Hyperlipidemia on statin continue # HTN (hypertension) controlled # Family history of heart disease # Alcoholism was suggested to stop drinking , since patient was also started on ELiquis. patient stated that he can stop drinking for 3 months only. # Acute Chest pain r/o ACS s/p for stress test (MIBI), positive result. DVT Px: Eliquis
[2016-12-14] MEDS: ATORVASTATIN CA 40 MG TABLET (FP) PO SCH (21:04)
--- NOTE | 2016-12-15 07:51 | PN ---
Progress Note, Physician History of Present Illness: seen and examined today in [facility]. no overnight events. no new complaints. no further chest pain. - Current Medication List Current Medications: Active Medications Aspirin (Ecotrin -) 81 mg PO DAILY [facility] Atorvastatin Calcium (Lipitor -) 40 mg PO HS [facility] Last Admin: 12/14/16 21:04 Dose: 40 mg Chlordiazepoxide HCl (Librium -) 25 mg PO Q6H PRN PRN Reason: WITHDRAWAL(CONT SUBST) Clopidogrel Bisulfate (Plavix -) 75 mg PO DAILY [facility] Last Admin: 12/14/16 16:21 Dose: 75 mg Heparin Sodium/Dextrose (Heparin Infusion -) 500 mls @ 20 mls/hr IVPB TITR ELMO ; 1,000 UNITS/HR PRN Reason: Protocol Last Titration: 12/15/16 01:30 Dose: 1,150 units/hr Metoprolol Tartrate (Lopressor -) 100 mg PO BID [facility] Last Admin: 12/14/16 21:05 Dose: 100 mg - Objective Vital Signs: Vital Signs Temperature 98.2 F 12/15/16 06:00 Pulse Rate 67 12/15/16 06:00 Respiratory Rate 16 12/15/16 06:00 Blood Pressure 118/75 12/15/16 06:00 O2 Sat by Pulse Oximetry (%) 98 12/14/16 21:00 Constitutional: Yes: Well Nourished, No Distress, Calm Eyes: Yes: WNL, Conjunctiva Clear, EOM Intact, PERRL HENT: Yes: WNL, Atraumatic, Normocephalic Neck: Yes: WNL, Supple, Trachea Midline Cardiovascular: Yes: WNL, Regular Rate and Rhythm, S1, S2. No: Bradycardia, Tachycardia, Pulse Irregular, Bruit, JVD, Gallop, Murmur, Rub, S3, S4, Varicosities Respiratory: Yes: WNL, Regular, CTA Bilaterally. No: Rales, Rhonchi, Wheezes Gastrointestinal: Yes: WNL, Normal Bowel Sounds, Soft. No: Distention, Tenderness Musculoskeletal: Yes: WNL Extremities: Yes: WNL Edema: No Peripheral Pulses WNL: Yes Peripheral Pulses: Left Doralis Pedis: 2+, Right Dorsalis Pedis: 2+ Integumentary: Yes: WNL Neurological: Yes: WNL, Alert, Oriented, Cran Nerves II-XII Intact ...Motor Strength: WNL Psychiatric: Yes: WNL, Alert, Oriented Labs: INR, PTT INR 1.06 (0.82-1.09) 12/12/16 04:55 - ....Imaging Chest X-ray: Report Reviewed, Image Reviewed EKG: Report Reviewed, Image Reviewed Other: Report Reviewed, Image Reviewed (tele-currently NSR, no events recorded since 5pm yesterday, prior to that Pafib with intermittent RVR) Assessment/Plan 46 year old man with a history of HTN, etoh abuse, admitted with chest pain, lightheadedness, dizziness found to be in newly dx Afib and with an abnormal nuclear stress test. Chest pain-no further chest pain, presumed CAD -nuclear stress test showed anterior, apical, and inferior ischemia and reduced LVEF -cont ASA 81mg daily and Plavix 75mg daily -cont Lopressor 100mg bid and Lipitor 40mg daily -cont tele monitoring -plan is for cardiac cath, likely saturday, after treatment for possible impending DT's -cont heparin gtt (off apixaban) prior to cardiac cath with plan to resume apixaban after cath -cont tele monitoring Afib-newly dx, with RVR on admission -currently NSR -cont Lopressor 100mg bid -cont heparin gtt until after cardiac cath at which point plan to resume apixaban -cont tele Cardiomyopathy-normal LV function on echo, mildly reduced on nuclear stress test -presumed due to ischemia at this point -treatment as above for ischemic work up HLD -cont statin HTN-well controlled -cont lopressor
[2016-12-15] MEDS: METOPROLOL TARTRATE 50 MG TABLET (FP) PO SCH ×2 (09:52→21:22)
[2016-12-15] MEDS: CLOPIDOGREL BISULFATE 75 MG TABLET (FP) PO SCH (09:53)
[2016-12-15] MEDS: ASPIRIN COATED 81 MG TABLET.EC PO SCH (09:53)
[2016-12-15] MEDS: HEPARIN INFUSION - 500 ML IVPB SCH ×2 (09:53→21:10)
--- NOTE | 2016-12-15 11:13 | PN ---
Physical Exam: SUBJECTIVE: Patient seen and examined Called by the nurse since patient had LUE infiltrated with heparin. Warm compresses was placed with pressure on the left arm. Bleeding stopped. arm is swollen. OBJECTIVE: Vital Signs Temperature 98.2 F 12/15/16 06:00 Pulse Rate 67 12/15/16 06:00 Respiratory Rate 16 12/15/16 06:00 Blood Pressure 118/75 12/15/16 06:00 O2 Sat by Pulse Oximetry (%) 98 12/14/16 21:00 GENERAL: The patient is awake, alert, and fully oriented, in no acute distress. HEAD: Normal with no signs of trauma. EYES: PERRL, extraocular movements intact, sclera anicteric, conjunctiva clear. ENT: Ears normal, oropharynx clear without exudates, moist mucous membranes. NECK: Trachea midline, full range of motion, supple. LUNGS: Breath sounds equal, clear to auscultation bilaterally, no wheezes, no crackles, no accessory muscle use. HEART: Regular rate and rhythm, S1, S2 without murmur, rub or gallop. ABDOMEN: Soft, nontender, nondistended, normoactive bowel sounds, no guarding, no rebound, no hepatosplenomegaly, no masses. EXTREMITIES: 2+ pulses, warm, well-perfused, LUE swelling due to heparin infiltration, warm and heavy compression is placed. NEUROLOGICAL: Cranial nerves II through XII grossly intact. Normal speech, gait not observed. PSYCH: Normal mood, normal affect. SKIN: Warm, dry, normal turgor, no rashes or lesions noted Laboratory Results - last 24 hr 12/15/16 12/15/16 00:50 06:00 PTT (Actin FS) 29.6 30.9 Active Medications Generic Name Dose Route Start Last Admin Trade Name Freq PRN Reason Stop Dose Admin Aspirin 81 mg 12/15/16 10:00 12/15/16 09:53 Ecotrin - PO 81 mg DAILY ELMO Administration Atorvastatin Calcium 40 mg 12/13/16 22:00 12/14/16 21:04 Lipitor - PO 40 mg HS ELMO Administration Chlordiazepoxide HCl 25 mg 12/14/16 15:36 Librium - PO Q6H PRN WITHDRAWAL(CONT SUBST) Clopidogrel Bisulfate 75 mg 12/14/16 15:15 12/15/16 09:53 Plavix - PO 75 mg DAILY ELMO Administration Heparin Sodium/Dextrose 500 mls @ 20 mls/hr 12/14/16 19:15 12/15/16 09:53 Heparin Infusion - IVPB 26 mls/hr TITR ELMO Administration Protocol 1,000 UNITS/HR Metoprolol Tartrate 100 mg 12/13/16 22:00 12/15/16 09:52 Lopressor - PO 100 mg BID ELMO Administration Home Medications Medication Instructions Recorded Lisinopril [Prinivil] 10 mg PO DAILY 12/12/16 CBCD WBC 9.2 K/mm3 (4.0-10.0) 12/14/16 06:07 RBC 4.28 M/mm3 (4.00-5.60) 12/14/16 06:07 Hgb 13.9 GM/dL (11.7-16.9) 12/14/16 06:07 Hct 41.1 % (35.4-49) 12/14/16 06:07 MCV 96.0 fl (80-96) 12/14/16 06:07 MCHC 33.9 g/dl (32.0-35.9) 12/14/16 06:07 RDW 12.2 % (11.9-15.9) 12/14/16 06:07 Plt Count 282 K/MM3 (134-434) 12/14/16 06:07 MPV 7.5 fl (7.5-11.1) 12/14/16 06:07 CMP Sodium 139 mmol/L (136-145) 12/14/16 06:07 Potassium 4.4 mmol/L (3.5-5.1) 12/14/16 06:07 Chloride 102 mmol/L (98-107) 12/14/16 06:07 Carbon Dioxide 27 mmol/L (21-32) 12/14/16 06:07 Anion Gap 10 (8-16) 12/14/16 06:07 BUN 15 mg/dL (7-18) D 12/14/16 06:07 Creatinine 0.9 mg/dL (0.7-1.3) 12/14/16 06:07 Creat Clearance w eGFR > 60 (>60) 12/12/16 04:55 Random Glucose 109 mg/dL (74-106) H 12/14/16 06:07 Calcium 8.8 mg/dL (8.5-10.1) 12/14/16 06:07 Total Bilirubin 0.5 mg/dL (0.2-1.0) 12/12/16 04:55 AST 21 U/L (15-37) 12/12/16 04:55 ALT 37 U/L (12-78) 12/12/16 04:55 Alkaline Phosphatase 91 U/L (45-117) 12/12/16 04:55 Total Protein 7.4 g/dl (6.4-8.2) 12/12/16 04:55 Albumin 3.9 g/dl (3.4-5.0) 12/12/16 04:55 CARDIAC ENZYMES Creatine Kinase 172 IU/L (39-308) 12/12/16 04:55 Troponin I < 0.02 ng/ml (0.00-0.05) 12/12/16 20:50 Ultrasound: Report Reviewed (ECHO: normal LVEF; mild DC; normal LA size) ASSESSMENT AND PLAN: Patient is a 46M history of HTN presents to the ED with chest pain and shortness of breath. And was found to have a new onset afib with RVR. # LUE swelling with infiltration, monitor. # Acute Chest pain r/o ACS , going for stress test (MIBI), [facility] test showed anterior, apical, and inferior ischemia and reduced LVEF # New onset atrial fibrillation , NSR now s/p Cardizem, on po lopressor now, rate is controlled with [id number] score is 1. Patient iss off ( Apixaban) now prior to cath , on heparin drip started last night since going for catherization continue the heparin protocol.Patient drinks at least 6 beers a night. Continue metoprolol. # Hyperlipidemia on statin continue # HTN (hypertension) controlled # Family history of heart disease # Alcoholism was suggested to stop drinking if her is going to be on ELiquis. patient stated that he can stop drinking for 3 months only DVT Px: hEPARIN Visit type - Emergency Visit Emergency Visit: Yes ED Registration Date: 12/14/16 Care time: The patient presented to the Emergency Department on the above date and was hospitalized for further evaluation of their emergent condition. - New Patient This patient is new to me today: No - Critical Care Critical Care patient: No - Discharge Referral Referred to [facility] Med P.C.: No
[2016-12-15] MEDS ORDERED: HEPARIN NA (PORCINE) 5,000 UNITS/ML 1ML VIAL ONE (11:53)
[2016-12-15] MEDS: ATORVASTATIN CA 40 MG TABLET (FP) PO SCH (21:22)
--- NOTE | 2016-12-16 08:56 | PN ---
Progress Note (short form) - Note Progress Note: Comfortable with no acute distress. Vital Signs Temperature 98.1 F 12/16/16 05:00 Pulse Rate 69 12/16/16 05:00 Respiratory Rate 16 12/16/16 05:00 Blood Pressure 115/74 12/16/16 05:00 O2 Sat by Pulse Oximetry (%) 99 12/15/16 21:00 GENERAL: The patient is awake, alert, and fully oriented, in no acute distress. HEAD: Normal with no signs of trauma. EYES: PERRL, extraocular movements intact, sclera anicteric, conjunctiva clear. ENT: Ears normal, oropharynx clear without exudates, moist mucous membranes. NECK: Trachea midline, full range of motion, supple. LUNGS: Breath sounds equal, clear to auscultation bilaterally, no wheezes, no crackles, no accessory muscle use. HEART: Regular rate and rhythm, S1, S2 without murmur, rub or gallop. ABDOMEN: Soft, nontender, nondistended, normoactive bowel sounds, no guarding, no rebound, no hepatosplenomegaly, no masses. EXTREMITIES: 2+ pulses, warm, well-perfused, LUE swelling due to heparin infiltration, warm and heavy compression is placed. NEUROLOGICAL: Cranial nerves II through XII grossly intact. Normal speech, gait not observed. PSYCH: Normal mood, normal affect. SKIN: Warm, dry, normal turgor, no rashes or lesions noted CBCD WBC 9.2 K/mm3 (4.0-10.0) 12/14/16 06:07 RBC 4.28 M/mm3 (4.00-5.60) 12/14/16 06:07 Hgb 13.9 GM/dL (11.7-16.9) 12/14/16 06:07 Hct 41.1 % (35.4-49) 12/14/16 06:07 MCV 96.0 fl (80-96) 12/14/16 06:07 MCHC 33.9 g/dl (32.0-35.9) 12/14/16 06:07 RDW 12.2 % (11.9-15.9) 12/14/16 06:07 Plt Count 282 K/MM3 (134-434) 12/14/16 06:07 MPV 7.5 fl (7.5-11.1) 12/14/16 06:07 CMP Sodium 139 mmol/L (136-145) 12/14/16 06:07 Potassium 4.4 mmol/L (3.5-5.1) 12/14/16 06:07 Chloride 102 mmol/L (98-107) 12/14/16 06:07 Carbon Dioxide 27 mmol/L (21-32) 12/14/16 06:07 Anion Gap 10 (8-16) 12/14/16 06:07 BUN 15 mg/dL (7-18) D 12/14/16 06:07 Creatinine 0.9 mg/dL (0.7-1.3) 12/14/16 06:07 Creat Clearance w eGFR > 60 (>60) 12/12/16 04:55 Random Glucose 109 mg/dL (74-106) H 12/14/16 06:07 Calcium 8.8 mg/dL (8.5-10.1) 12/14/16 06:07 Total Bilirubin 0.5 mg/dL (0.2-1.0) 12/12/16 04:55 AST 21 U/L (15-37) 12/12/16 04:55 ALT 37 U/L (12-78) 12/12/16 04:55 Alkaline Phosphatase 91 U/L (45-117) 12/12/16 04:55 Total Protein 7.4 g/dl (6.4-8.2) 12/12/16 04:55 Albumin 3.9 g/dl (3.4-5.0) 12/12/16 04:55 CARDIAC ENZYMES Creatine Kinase 172 IU/L (39-308) 12/12/16 04:55 Troponin I < 0.02 ng/ml (0.00-0.05) 12/12/16 20:50 Current Medications Generic Name Dose Route Start Last Admin Trade Name Freq PRN Reason Stop Dose Admin Aspirin 81 mg 12/15/16 10:00 12/15/16 09:53 Ecotrin - PO 81 mg DAILY ELMO Administration Atorvastatin Calcium 40 mg 12/13/16 22:00 12/15/16 21:22 Lipitor - PO 40 mg HS ELMO Administration Chlordiazepoxide HCl 25 mg 12/14/16 15:36 Librium - PO Q6H PRN WITHDRAWAL(CONT SUBST) Clopidogrel Bisulfate 75 mg 12/14/16 15:15 12/15/16 09:53 Plavix - PO 75 mg DAILY ELMO Administration Heparin Sodium/Dextrose 500 mls @ 20 mls/hr 12/14/16 19:15 12/16/16 05:04 Heparin Infusion - IVPB 1,050 units/hr TITR ELMO Titration Protocol 1,000 UNITS/HR Metoprolol Tartrate 100 mg 12/13/16 22:00 12/15/16 21:22 Lopressor - PO 100 mg BID ELMO Administration Home Medications Medication Instructions Recorded Lisinopril [Prinivil] 10 mg PO DAILY 12/12/16 Ultrasound: Report Reviewed (ECHO: normal LVEF; mild MI; normal LA size) ASSESSMENT AND PLAN: Patient is a 46M history of HTN presents to the ED with chest pain and shortness of breath. And was found to have a new onset afib with RVR. # Acute Chest pain improved patient will be going for stress test at [facility] since stress test positive for Ischemia going for going for stress test (MIBI), patient is getting arranged to Tx to [facility] for angioplasty.nuclear stress test showed anterior, apical, and inferior ischemia and reduced LVEF, on heparin drip # New onset atrial fibrillation , NSR now s/p Cardizem, on po lopressor now, rate is controlled with [id number] score is 1. Patient iss off ( Apixaban) now prior to cath , on heparin drip now since going for cardiac cath. continue the heparin protocol. # LUE swelling with infiltration, monitor. # Hyperlipidemia on statin continue # HTN (hypertension) controlled # Family history of heart disease # Alcoholism was suggested to stop drinking if her is going to be on ELiquis. Patient drinks at least 6 beers a night. Continue metoprolol. DVT Px: hEPARIN Visit type - Emergency Visit Emergency Visit: Yes ED Registration Date: 12/14/16 Care time: The patient presented to the Emergency Department on the above date and was hospitalized for further evaluation of their emergent condition. - New Patient This patient is new to me today: No - Critical Care Critical Care patient: No
[2016-12-16] MEDS: METOPROLOL TARTRATE 50 MG TABLET (FP) PO SCH ×2 (09:11→21:32)
[2016-12-16] MEDS: ASPIRIN COATED 81 MG TABLET.EC PO SCH (09:11)
[2016-12-16] MEDS: CLOPIDOGREL BISULFATE 75 MG TABLET (FP) PO SCH (09:11)
--- NOTE | 2016-12-16 09:13 | PN ---
Progress Note, Physician History of Present Illness: seen and examined today in [facility]. no overnight events. no new complaints. - Current Medication List Current Medications: Active Medications Aspirin (Ecotrin -) 81 mg PO DAILY [facility] Last Admin: 12/15/16 09:53 Dose: 81 mg Atorvastatin Calcium (Lipitor -) 40 mg PO HS [facility] Last Admin: 12/15/16 21:22 Dose: 40 mg Chlordiazepoxide HCl (Librium -) 25 mg PO Q6H PRN PRN Reason: WITHDRAWAL(CONT SUBST) Clopidogrel Bisulfate (Plavix -) 75 mg PO DAILY [facility] Last Admin: 12/15/16 09:53 Dose: 75 mg Heparin Sodium/Dextrose (Heparin Infusion -) 500 mls @ 20 mls/hr IVPB TITR ELMO ; 1,000 UNITS/HR PRN Reason: Protocol Last Titration: 12/16/16 05:04 Dose: 1,050 units/hr Metoprolol Tartrate (Lopressor -) 100 mg PO BID [facility] Last Admin: 12/15/16 21:22 Dose: 100 mg - Objective Vital Signs: Vital Signs Temperature 98.1 F 12/16/16 05:00 Pulse Rate 69 12/16/16 05:00 Respiratory Rate 16 12/16/16 05:00 Blood Pressure 115/74 12/16/16 05:00 O2 Sat by Pulse Oximetry (%) 99 12/15/16 21:00 Constitutional: Yes: Well Nourished, No Distress, Calm Eyes: Yes: WNL, Conjunctiva Clear, EOM Intact, PERRL HENT: Yes: WNL, Atraumatic, Normocephalic Neck: Yes: WNL, Supple, Trachea Midline Cardiovascular: Yes: WNL, Regular Rate and Rhythm, S1, S2. No: Bradycardia, Tachycardia, Pulse Irregular, Bruit, JVD, Gallop, Murmur, Rub, S3, S4, Varicosities Respiratory: Yes: WNL, Regular, CTA Bilaterally. No: Rales, Rhonchi, Wheezes Gastrointestinal: Yes: WNL, Normal Bowel Sounds, Soft. No: Distention, Tenderness Musculoskeletal: Yes: WNL Extremities: Yes: WNL Edema: No Peripheral Pulses WNL: Yes Peripheral Pulses: Left Doralis Pedis: 2+, Right Dorsalis Pedis: 2+ Integumentary: Yes: WNL Neurological: Yes: WNL, Alert, Oriented, Cran Nerves II-XII Intact ...Motor Strength: WNL Psychiatric: Yes: WNL, Alert, Oriented Labs: INR, PTT INR 1.06 (0.82-1.09) 12/12/16 04:55 - ....Imaging Chest X-ray: Report Reviewed, Image Reviewed EKG: Report Reviewed, Image Reviewed Other: Report Reviewed, Image Reviewed (tele-nsr, sinus tach, no events recorded since 12/14) Assessment/Plan 46 year old man with a history of HTN, etoh abuse, admitted with chest pain, lightheadedness, dizziness found to be in newly dx Afib and with an abnormal nuclear stress test. Chest pain-no further chest pain, presumed CAD -nuclear stress test showed anterior, apical, and inferior ischemia and reduced LVEF -cont ASA 81mg daily and Plavix 75mg daily -cont Lopressor 100mg bid and Lipitor 40mg daily -cont tele monitoring -plan is for cardiac cath, likely tomorrow, after treatment for possible impending DT's -cont heparin gtt (off apixaban) prior to cardiac cath with plan to resume apixaban after cath -awaiting information as to the time of cardiac cath tomorrow to determine when to stop heparin gtt before procedure -cont tele monitoring Afib-newly dx, with RVR on admission, no events recorded on tele since 12/14 -currently NSR -cont Lopressor 100mg bid -cont heparin gtt until after cardiac cath at which point plan to resume apixaban -cont tele Cardiomyopathy-normal LV function on echo, mildly reduced on nuclear stress test -presumed due to ischemia at this point -treatment as above for ischemic work up HLD -cont statin HTN-well controlled -cont lopressor
[2016-12-16] MEDS: HEPARIN INFUSION - 500 ML IVPB SCH ×2 (18:07→21:32)
[2016-12-16] MEDS: ATORVASTATIN CA 40 MG TABLET (FP) PO SCH (21:32)
--- NOTE | 2016-12-17 08:20 | PN ---
Physical Exam: SUBJECTIVE: Patient seen and examined OBJECTIVE: Vital Signs Period Temp Pulse Resp BP Sys/Arellano Pulse Ox Last 24 Hr 97.4 F-98.5 F 63-661 6-20 110-124/65-89 98-98 GENERAL: The patient is awake, alert, and fully oriented, in no acute distress. HEAD: Normal with no signs of trauma. EYES: PERRL, extraocular movements intact, sclera anicteric, conjunctiva clear. No ptosis. ENT: Ears normal, nares patent, oropharynx clear without exudates, moist mucous membranes. NECK: Trachea midline, full range of motion, supple. LUNGS: Breath sounds equal, clear to auscultation bilaterally, no wheezes, no crackles, no accessory muscle use. HEART: Regular rate and rhythm, S1, S2 without murmur, rub or gallop. ABDOMEN: Soft, nontender, nondistended, normoactive bowel sounds, no guarding, no rebound, no hepatosplenomegaly, no masses. EXTREMITIES: 2+ pulses, warm, well-perfused, no edema. NEUROLOGICAL: Cranial nerves II through XII grossly intact. Normal speech, gait not observed. PSYCH: Normal mood, normal affect. SKIN: Warm, dry, normal turgor, no rashes or lesions noted Laboratory Results - last 24 hr 12/16/16 11:11 PTT (Actin FS) 67.6 H Active Medications Generic Name Dose Route Start Last Admin Trade Name Freq PRN Reason Stop Dose Admin Aspirin 81 mg 12/15/16 10:00 12/16/16 09:11 Ecotrin - PO 81 mg DAILY ELMO Administration Atorvastatin Calcium 40 mg 12/13/16 22:00 12/16/16 21:32 Lipitor - PO 40 mg HS ELMO Administration Chlordiazepoxide HCl 25 mg 12/14/16 15:36 Librium - PO Q6H PRN WITHDRAWAL(CONT SUBST) Clopidogrel Bisulfate 75 mg 12/14/16 15:15 12/16/16 09:11 Plavix - PO 75 mg DAILY ELMO Administration Heparin Sodium/Dextrose 500 mls @ 20 mls/hr 12/14/16 19:15 12/16/16 21:32 Heparin Infusion - IVPB Not Given TITR [facility] Protocol 1,000 UNITS/HR Metoprolol Tartrate 100 mg 12/13/16 22:00 12/16/16 21:32 Lopressor - PO 100 mg BID ELMO Administration ASSESSMENT/PLAN: 46M with PMHx HTN presented with chest pain, palpitations, SOB, found to be a new onset Afib with RVR, likely from heavy EToH abuse. # Positive Stress Test - Stress test on 12/14 shows myocardial perfusion defects in multilpe territories ; gated study ntoes mildly decreased LVEF - Patietn was started on ASA, Plavix, IV heparin; discontinued apixaban - Pending coronary angiogram at [facility] - Cardio on board, need to figure out when cath time is to know when to stop heparin # New onset Afib with RVR - Cause is likely due to heavy drinking. Patient drinks 6 beers a day everyday mixed with strong liquor - Patient admitted to telemetry for monitoring, tele reviewed today, patient had intermittent episode of Afib, no tachycardia - Patient is rate controlled with metoprolol 100mg PO BID - CHADSVaSC score is 1 (for HTN), patient initially started on Eliquis 5mg PO BID, but risks and benefits were weighed, decided to dc. - Echo is negative for clots # Chest pain r/o WA - Patient presented with chest pain - Lipid panel, troponins, A1C are WNL - Patient on statin 40mg PO QHD - Stress test today, results show +perfusion defects in multiple territories - Started ASA and Plavix, dc'ed Eliquis - Will transfer to higher level facility for cardiac cath # History of HTN: - Restart lisinopril at home dose 10mg po daily # History of Alcohol Abuse - Patient was counseled to stop drinking, ifnormed that if patient is on Eliquis there is a high risk of bleed counselled on stopping - Patient later on in the day looked mildly anxious with sinus tach, concerned for withdrawal, given Libruim 25mg once and Q6hrs - Since then was closely monitored, no withdrawal symptoms. Has not needed Librium PRN # FEN: - Fluids: no IVF - Electrolytes: No electrolyte issues - Nutrition: low sodium diet # PPx: - DVT Px: SCDs ordered - No GI PPx needed at this time - No deconditioning issues will put PT consult if needed. # Code Status: - Full Code
--- NOTE | 2016-12-17 09:23 | PN ---
Progress Note, Physician History of Present Illness: 46yo Male patient w/ PmHx: HTN presents to ED c/o chest pains, chest tightness with trouble breathing. Patient states drinking alcohol moderately daily. Associated lightheadedness, dizziness reported. He denies any other complaints at this time. - Current Medication List Current Medications: Active Medications Aspirin (Ecotrin -) 81 mg PO DAILY [facility] Last Admin: 12/16/16 09:11 Dose: 81 mg Atorvastatin Calcium (Lipitor -) 40 mg PO HS [facility] Last Admin: 12/16/16 21:32 Dose: 40 mg Chlordiazepoxide HCl (Librium -) 25 mg PO Q6H PRN PRN Reason: WITHDRAWAL(CONT SUBST) Clopidogrel Bisulfate (Plavix -) 75 mg PO DAILY [facility] Last Admin: 12/16/16 09:11 Dose: 75 mg Heparin Sodium/Dextrose (Heparin Infusion -) 500 mls @ 20 mls/hr IVPB TITR ELMO ; 1,000 UNITS/HR PRN Reason: Protocol Last Admin: 12/16/16 21:32 Dose: Not Given Metoprolol Tartrate (Lopressor -) 100 mg PO BID [facility] Last Admin: 12/16/16 21:32 Dose: 100 mg - Objective Vital Signs: Vital Signs Temperature 98.0 F 12/17/16 05:49 Pulse Rate 661 H 12/17/16 05:49 Respiratory Rate 6 L 12/17/16 05:49 Blood Pressure 111/69 12/17/16 05:49 O2 Sat by Pulse Oximetry (%) 98 12/16/16 21:00 Eyes: Yes: WNL, Conjunctiva Clear, EOM Intact HENT: Yes: WNL, Atraumatic, Normocephalic Neck: Yes: WNL, Supple, Trachea Midline Cardiovascular: Yes: WNL, Regular Rate and Rhythm Respiratory: Yes: WNL, Regular, CTA Bilaterally Gastrointestinal: Yes: WNL, Normal Bowel Sounds Genitourinary: Yes: WNL Musculoskeletal: Yes: WNL Extremities: Yes: WNL Edema: No Integumentary: Yes: WNL Neurological: Yes: WNL, Alert, Oriented ...Motor Strength: WNL Psychiatric: Yes: WNL Labs: INR, PTT INR 1.06 (0.82-1.09) 12/12/16 04:55 Assessment/Plan 46 year old man with a history of HTN, etoh abuse, admitted with chest pain, lightheadedness, dizziness found to be in newly dx Afib and with an abnormal nuclear stress test. Chest pain-no further chest pain, presumed CAD -nuclear stress test showed anterior, apical, and inferior ischemia and reduced LVEF -cont ASA 81mg daily and Plavix 75mg daily -cont Lopressor 100mg bid and Lipitor 40mg daily -cont tele monitoring -plan is for cardiac cath, likely tomorrow, after treatment for possible impending DT's -cont heparin gtt (off apixaban) prior to cardiac cath with plan to resume apixaban after cath -awaiting information as to the time of cardiac cath tomorrow to determine when to stop heparin gtt before procedure -cont tele monitoring Afib-newly dx, with RVR on admission, no events recorded on tele since 12/14 -currently NSR -cont Lopressor 100mg bid -cont heparin gtt until after cardiac cath at which point plan to resume apixaban -cont tele Cardiomyopathy-normal LV function on echo, mildly reduced on nuclear stress test -presumed due to ischemia at this point -treatment as above for ischemic work up HLD -cont statin HTN-well controlled -cont lopressor
[2016-12-17 10:11] VITALS: BP 129/69; PULSE 80; TEMP 98
[2016-12-17] MEDS: ASPIRIN COATED 81 MG TABLET.EC PO SCH (10:13)
[2016-12-17] MEDS: CLOPIDOGREL BISULFATE 75 MG TABLET (FP) PO SCH (10:13)
[2016-12-17] MEDS: HEPARIN INFUSION - 500 ML IVPB SCH (10:13)
[2016-12-17] MEDS: METOPROLOL TARTRATE 50 MG TABLET (FP) PO SCH (10:13)
--- NOTE | 2016-12-17 18:00 | DS ---
Physical Exam: SUBJECTIVE: Patient seen and examined this AM. Patient was resting comfortably, not in pain. No fever, no chills, no CP, no short of breath. No acute events overnight as per nurse. Patient is aware of transfer to another facility for Cardiac Cath. OBJECTIVE: Vital Signs Period Temp Pulse Resp BP Sys/Arellano Pulse Ox Last 24 Hr 98 F-98.5 F 63-661 6-20 111-129/69-89 98-98 PHYSICAL EXAM GENERAL: The patient is awake, alert, and fully oriented, in no acute distress. Patient is very comfortable. EYES: PERRL, extraocular movements intact, sclera anicteric, conjunctiva clear. LUNGS: Breath sounds equal, clear to auscultation bilaterally, no wheezes, no crackles, no accessory muscle use. HEART: Regular rate and rhythm, S1, S2 without murmur, rub or gallop. ABDOMEN: Soft, nontender, nondistended, normoactive bowel sounds, no guarding, no rebound EXTREMITIES: 2+ pulses, warm, well-perfused, no edema. NEUROLOGICAL: AAOx3, no facial droop, Cranial nerves II through XII grossly intact. Normal speech, gait not observed. LABS Laboratory Results - last 24 hr 12/17/16 05:35 PTT (Actin FS) 61.9 H HOSPITAL COURSE: Date of Admission:12/14/16 Date of Discharge: 12/17/16 46M with PMHx HTN presented with chest pain, palpitations, SOB, found to be a new onset Afib with RVR, likely from heavy EToH abuse. # Chest pain w/ Positive Stress Test - Patient presented with chest pain - Lipid panel, troponins, A1C are WNL - Stress test on 12/14 shows myocardial perfusion defects in multilpe territories ; gated study notes mildly decreased LVEF - Patient was started on ASA, Plavix, IV heparin, statin - Patient being transferred to [facility] for cardiac catheterization # New onset Afib with RVR - Cause is likely due to heavy drinking. Patient drinks 6 beers a day everyday mixed with strong liquor - Patient is rate controlled with metoprolol 100mg PO BID - CHADSVaSC score is 1 (for HTN), patient initially started on Eliquis 5mg PO BID, but risks and benefits were weighed, decided to dc Eliquis - Echo is negative for clots # History of HTN: - Restarted lisinopril at home dose 10mg po daily # History of Alcohol Abuse - Patient was counseled to stop drinking - Patient during admission looked mildly anxious with sinus tach, concerned for withdrawal, given Libruim 25mg once and Q6hrs, since then was closely monitored , no withdrawal symptoms, and he has not needed Librium PRN Minutes to complete discharge: 45 Discharge Summary Reason For Visit: CHEST PAIN/TIGHTNESS, SOB Current Active Problems Chest pain (Acute) New onset atrial fibrillation (Acute) Alcoholism (Chronic) CHF (congestive heart failure) (Chronic) Family history of heart disease (Chronic) HTN (hypertension) (Chronic) Hyperlipidemia (Chronic) Condition: Improved - Instructions Diet, Activity, Other Instructions: You came into the hospital for chest pain. We found that you had an abnormal rhythm called Atrial Fibrillation. We controlled your heart rate. You then did a stress test which showed that your heart is not getting enough blood that it needs. You are going to be transferred to [facility] for a procedure called Cardiac Catheterization which allows doctors to look at all the arteries leading to your heart and treat them with stents if they need to. Please return to the Emergency Department if you have any serious symptoms ( severe chest pain) Please followup with your primary care doctors and hand straightener Referrals: Dash Abel [Primary Care Provider] - Disposition: TRANSFER ACUTE CARE/OTHER HOSP - Home Medications Comprehensive Discharge Medication List: Ambulatory Orders Lisinopril [Prinivil] 10 mg PO DAILY 12/12/16 Aspirin Coated [Ecotrin -] 81 mg PO DAILY tab 12/17/16 Atorvastatin Ca [Lipitor] 40 mg PO HS #25 tablet 12/17/16 Metoprolol Tartrate [Lopressor -] 100 mg PO BID tablet 12/17/16 This patient is new to me today: No Emergency Visit: No Critical Care patient: No - Discharge Referral Referred to [facility] Med P.C.: No
--- NOTE | 2016-12-17 18:42 | PN ---
Teaching Attending Note Name of Resident: Ethel Sun ATTENDING PHYSICIAN STATEMENT I saw and evaluated the patient. I reviewed the resident's note and discussed the case with the resident. I agree with the resident's findings and plan as documented. SUBJECTIVE: Comfortable with no acute distress OBJECTIVE: Vital Signs Temperature 98 F 12/17/16 10:00 Pulse Rate 80 12/17/16 10:00 Respiratory Rate 20 12/17/16 10:00 Blood Pressure 129/69 12/17/16 10:00 O2 Sat by Pulse Oximetry (%) 98 12/17/16 09:00 CBCD WBC 9.2 K/mm3 (4.0-10.0) 12/14/16 06:07 RBC 4.28 M/mm3 (4.00-5.60) 12/14/16 06:07 Hgb 13.9 GM/dL (11.7-16.9) 12/14/16 06:07 Hct 41.1 % (35.4-49) 12/14/16 06:07 MCV 96.0 fl (80-96) 12/14/16 06:07 MCHC 33.9 g/dl (32.0-35.9) 12/14/16 06:07 RDW 12.2 % (11.9-15.9) 12/14/16 06:07 Plt Count 282 K/MM3 (134-434) 12/14/16 06:07 MPV 7.5 fl (7.5-11.1) 12/14/16 06:07 CMP Sodium 139 mmol/L (136-145) 12/14/16 06:07 Potassium 4.4 mmol/L (3.5-5.1) 12/14/16 06:07 Chloride 102 mmol/L (98-107) 12/14/16 06:07 Carbon Dioxide 27 mmol/L (21-32) 12/14/16 06:07 Anion Gap 10 (8-16) 12/14/16 06:07 BUN 15 mg/dL (7-18) D 12/14/16 06:07 Creatinine 0.9 mg/dL (0.7-1.3) 12/14/16 06:07 Creat Clearance w eGFR > 60 (>60) 12/12/16 04:55 Random Glucose 109 mg/dL (74-106) H 12/14/16 06:07 Calcium 8.8 mg/dL (8.5-10.1) 12/14/16 06:07 Total Bilirubin 0.5 mg/dL (0.2-1.0) 12/12/16 04:55 AST 21 U/L (15-37) 12/12/16 04:55 ALT 37 U/L (12-78) 12/12/16 04:55 Alkaline Phosphatase 91 U/L (45-117) 12/12/16 04:55 Total Protein 7.4 g/dl (6.4-8.2) 12/12/16 04:55 Albumin 3.9 g/dl (3.4-5.0) 12/12/16 04:55 CARDIAC ENZYMES Creatine Kinase 172 IU/L (39-308) 12/12/16 04:55 Troponin I < 0.02 ng/ml (0.00-0.05) 12/12/16 20:50 Home Medications Medication Instructions Recorded Lisinopril [Prinivil] 10 mg PO DAILY 12/12/16 Aspirin Coated [Ecotrin -] 81 mg PO DAILY tab 12/17/16 Atorvastatin Ca [Lipitor] 40 mg PO HS #25 tablet 12/17/16 Metoprolol Tartrate [Lopressor -] 100 mg PO BID tablet 12/17/16 PE: per resident's note Ultrasound: Report Reviewed (ECHO: normal LVEF; mild [place]; normal LA size) ASSESSMENT AND PLAN: Patient is a 46M history of HTN presents to the ED with chest pain and shortness of breath. And was found to have a new onset afib with RVR. # Acute Chest pain improved patient will be going for stress test at [facility] since stress test positive for Ischemia the stress test (MIBI), for angioplasty.nuclear stress test showed anterior, apical, and inferior ischemia and reduced LVEF, on heparin drip continue # New onset atrial fibrillation , NSR now s/p Cardizem, on po lopressor now, rate is controlled with [id number] score is 1. Patient is off ( Apixaban) now prior to cath , on heparin drip now since going for cardiac cath. continue the heparin protocol. # LUE swelling with infiltration, monitor. # Hyperlipidemia on statin continue # HTN (hypertension) controlled # Family history of heart disease # Alcoholism was suggested to stop drinking if her is going to be on ELiquis. Patient drinks at least 6 beers a night. Continue metoprolol.
== END 2016-12-17 13:30 | disposition short-term general hospital (02) | DRG 310 ==
LOC: JER 04:19 → JERBED 06:58 → INTOOBSV 06:58 → J4W 08:49 → OBSVTOIN 12-14 15:50
PROVIDERS: ADMIT Family Medicine; ATTEND Internal Medicine
DX: I48.91 Unspecified atrial fibrillation (principal); F10.10 Alcohol abuse, uncomplicated; E78.5 Hyperlipidemia, unspecified; I11.0 Hypertensive heart disease with heart failure; I50.9 Heart failure, unspecified; I42.9 Cardiomyopathy, unspecified; R73.9 Hyperglycemia, unspecified; Z82.49 Family history of ischemic heart disease and other diseases of the circulatory system
CPT/HCPCS: 36415; 71010-TC; 78452-TC; 80048; 80053; 80061; 80307; 81003; 82550; 82553; 83036; 83721; 83735; 84100; 84443; 84484; 85025; 85027; 85610; 85730; 93005; 93010; 93017; 93306-TC; 99283-25; A9502; G0378; J1644

== ENCOUNTER 2017-01-05 23:56 | Emergency (ER) | payer BC ==
[2017-01-06 00:09] VITALS: TEMP 97.6; BMI 27.6
--- NOTE | 2017-01-06 02:00 | PDOC ---
History of Present Illness - General History Source: Patient Exam Limitations: No Limitations - History of Present Illness Initial Comments: 01/06/17 02:31 Patient is a 46 year old male with a significant past medical history of CHF, HTN, HLD, Afib and EtOH abuse who presents to the ED with elevated BP. Patient states that tested his BP at [facility] that was 172/104 after he felt dizzy. Patient states that he has been taking his medication daily and his last drink was 12/11. Patient states that he is under stress and is not getting enough sleep. He denies any fever or chills. He denies dysuria. SH: non smoker, hx of EtOH abuse last drink 12/11. [employer] - Dr. Newell <Jania Meade - Last Filed: 01/06/17 02:30> <Marisel Fischer - Last Filed: 01/06/17 05:10> - General Chief Complaint: Blood Pressure Problem Stated Complaint: ELEVATED BLOOD PRESSURE Time Seen by Provider: 01/06/17 01:58 Past History <Jania Meade - Last Filed: 01/06/17 02:30> - Past Medical History HTN: Yes - Psycho/Social/Smoking Cessation Hx Suicidal Ideation: No Smoking History: Never smoked <Marisel Fischer - Last Filed: 01/06/17 05:10> - Past Medical History Allergies/Adverse Reactions: Allergies Allergy/AdvReac Type Severity Reaction Status Date / Time No Known Allergies Allergy Verified 01/06/17 00:08 Home Medications: Ambulatory Orders Lisinopril [Prinivil] 2.5 mg PO DAILY 12/12/16 Aspirin Coated [Ecotrin -] 81 mg PO DAILY tab 12/17/16 Metoprolol Tartrate [Lopressor -] 100 mg PO BID tablet 12/17/16 Review of Systems - Review of Systems Able to Perform ROS?: Yes Comments:: 01/06/17 02:33 GENERAL/CONSTITUTIONAL: No fever or chills. No weakness. HEAD, EYES, EARS, NOSE AND THROAT: No change in vision. No ear pain or discharge. No sore throat. CARDIOVASCULAR: No chest pain or shortness of breath. RESPIRATORY: No cough, wheezing, or hemoptysis. GASTROINTESTINAL: No nausea, vomiting, diarrhea or constipation. GENITOURINARY: No dysuria, frequency, or change in urination. MUSCULOSKELETAL: No joint or muscle swelling or pain. No neck or back pain. SKIN: No rash NEUROLOGIC: No headache, vertigo, loss of consciousness, or change in strength/ sensation. ENDOCRINE: No increased thirst. No abnormal weight change. HEMATOLOGIC/LYMPHATIC: No anemia, easy bleeding, or history of blood clots. ALLERGIC/IMMUNOLOGIC: No hives or skin allergy. <Jania Meade - Last Filed: 01/06/17 02:30> *Physical Exam - Vital Signs Last Vital Signs Temp Pulse Resp BP Pulse Ox 97.6 F 66 20 160/96 98 01/06/17 00:05 01/06/17 00:05 01/06/17 00:05 01/06/17 00:05 01/06/17 00:05 - Physical Exam Comments: 01/06/17 02:34 GENERAL: Awake, alert, and fully oriented, in no acute distress HEAD: No signs of trauma EYES: PERRLA, EOMI, sclera anicteric, conjunctiva clear ENT: Auricles normal inspection, hearing grossly normal, nares patent, oropharynx clear without exudates. Moist mucosa NECK: Normal ROM, supple, no lymphadenopathy, JVD, or masses LUNGS: Breath sounds equal, clear to auscultation bilaterally. No wheezes, and no crackles HEART: Regular rate and rhythm, normal S1 and S2, no murmurs, rubs or gallops ABDOMEN: Soft, nontender, normoactive bowel sounds. No guarding, no rebound. No masses EXTREMITIES: Normal range of motion, no edema. No clubbing or cyanosis. No cords, erythema, or tenderness NEUROLOGICAL: Cranial nerves II through XII grossly intact. Normal speech. SKIN: Warm, Dry, normal turgor, no rashes or lesions noted. <Jania Meade - Last Filed: 01/06/17 02:30> - Vital Signs Last Vital Signs Temp Pulse Resp BP Pulse Ox 97.6 F 66 20 160/96 98 01/06/17 00:05 01/06/17 00:05 01/06/17 00:05 01/06/17 00:05 01/06/17 00:05 <Marisel Fischer - Last Filed: 01/06/17 05:10> Medical Decision Making - Medical Decision Making 01/06/17 05:10 PT COMES WITH ELEVATED BP. BP IN THE ER IS NORMAL. EKG HAS NONSPECIFIC CHANGES. PT'S EXAM IS NORMAL. <Marisel Fischer - Last Filed: 01/06/17 05:10> *DC/Admit/Observation/Transfer - Attestations Scribe Attestion: 01/06/17 02:35 Documentation prepared by DE Parks, acting as medical lab scientist for Marisel Fischer MD. <Jania Meade - Last Filed: 01/06/17 02:30> - Discharge Dispostion Admit: No <Marisel Fischer - Last Filed: 01/06/17 05:10> Diagnosis at time of Disposition: HTN (hypertension) - Discharge Dispostion Disposition: HOME Condition at time of disposition: Stable - Referrals Referrals: Dash Abel [Primary Care Provider] - - Patient Instructions Printed Discharge Instructions: DI for High Blood Pressure - Post Discharge Activity Work/School Note: Back to Work
[2017-01-06 03:03] VITALS: BP 137/76; PULSE 62
--- NOTE | 2017-01-06 17:13 | EKG ---
Test Reason : Blood Pressure : / mmHG Vent. Rate : 053 BPM Atrial Rate : 053 BPM P-R Int : 198 ms QRS Dur : 094 ms QT Int : 440 ms P-R-T Axes : 050 -15 -03 degrees QTc Int : 412 ms SINUS BRADYCARDIA MINIMAL VOLTAGE CRITERIA FOR LVH, MAY BE NORMAL VARIANT EARLY REPOLARIZATION PATTERN EARLY TRANITION IN V1-V2 BORDERLINE ECG WHEN COMPARED WITH ECG OF 13-DEC-2016 12:37, NO SIGNIFICANT CHANGE WAS FOUND CLINICAL CORRELATION IS RECOMMENDED Confirmed by DHIRAJ GUILLERMO MD ([id number]) on 01/06/2017 5:13:51 PM Referred By: Confirmed By:DHIRAJ GUILLERMO MD
== END 2017-01-06 02:57 | disposition home or self-care (01) ==
LOC: JER 23:56
DX: I10 Essential (primary) hypertension (principal); I50.9 Heart failure, unspecified; I48.91 Unspecified atrial fibrillation
CPT/HCPCS: 93005; 93010; 99282-25

== ENCOUNTER 2021-08-18 11:25 | Emergency (ER) | payer OTHER ==
[2021-08-18 11:31] VITALS: BMI 29.2
[2021-08-18 13:00] LABS: HEMATOCRIT 44.3 % (35.4-49); MCH 32.1 pg (25.7-33.7); MCHC 33.8 g/dl (32.0-35.9); MEAN PLT VOLUME 8.3 fl (7.5-11.1); PLATELET COUNT 242 10^3/uL (134-434); RBC 4.66 M/mm3 (4.00-5.60); RDW 12.3 % (11.9-15.9); WHITE BLOOD COUNT 9.5 K/mm3 (4.0-10.0)
[2021-08-18 14:02] LABS: INR 1.13 (0.83-1.09)
[2021-08-18 14:11] LABS: ANISOCYTOSIS 1+; MACROCYTOSIS 0; OVALOCYTE 1+
[2021-08-18 14:12] LABS: BILIRUBIN,TOTAL 0.5 mg/dL (0.2-1); BLOOD UREA NITROGEN 12.2 mg/dL (7-18); CALCIUM 9.2 mg/dL (8.5-10.1); CREATININE 1.1 mg/dL (0.55-1.3); TOT PROT 7.5 g/dl (6.4-8.2)
[2021-08-18 16:32] VITALS: BP 148/80; PULSE 88; TEMP 98.2
== END 2021-08-18 16:32 | disposition home or self-care (01) ==
LOC: JER 11:25
DX: R53.82 Chronic fatigue, unspecified (principal)
CPT/HCPCS: 36415; 80053; 82607; 82728; 83540; 83550; 84484; 85025; 85610; 93005; 93010; 99284-25